=== PATIENT | female | born 1965 | race Caucasian/White ===

== ENCOUNTER 2017-12-14 09:36 | Observation (INO) | payer MEDICAID, MEDICARE ==
[2017-12-14] MEDS ORDERED: NS 0.9% 1000 ML* 1,000 ML IV ONE (09:45)
--- NOTE | 2017-12-14 10:01 | ED ---
Neurological HPI - HPI Summary HPI Summary: Patient is a 52 y/o female who presents to the ED c/o neurological deficits. As per patient, she began having symptoms at 6:00 this morning. She felt very groggy, had trouble focusing, and was off-balance. Patient then went to work, when a co-worker noticed slurred speech at 8:20. She also c/o a headache. She denies any blurred vision or extremity weakness. This is the fifth episode of lethargy and weakness since March 2017. She was evaluated at [facility] and all tests have been negative. She denies any hx of CVA or AFib, but has HTN and HLD. Patient denies any recent surgery or rectal bleeding. She does not take daily ASA. Destinee garcia was called at 9:43. - History of Current Complaint Stated Complaint: HEADACE DIZZY Time Seen by Provider: 12/14/17 09:45 Hx Obtained From: Patient, Family/Oral Surgery Assistant - Co-worker Onset/Duration: Gradual Onset, Started hours ago - 6:00, Still Present Timing: Constant Neurological Deficit Location: Generalized, RLE Headache Location: Diffuse (Right), Diffuse (Left) Character: Motor Weakness, Impaired Speech, Lethargy Aggravating: Nothing Alleviating: Nothing Associated Signs and Symptoms: Positive: Headache, Weakness, Impaired Speech. Negative: Visual Changes, Numbness Similar Episode/Dx as: 5 months ago - Allergy/Home Medications Allergies/Adverse Reactions: Allergies Allergy/AdvReac Type Severity Reaction Status Date / Time bee venom protein (honey bee) Allergy Swelling Verified 12/14/17 10:14 Of Face,Lips,& Throat Home Medications: Home Medications Albuterol HFA INHALER* [Ventolin HFA Inhaler*] 2 puff INH Q4H PRN 12/14/17 [ History Confirmed 12/14/17] Cyanocobalamin TAB* [Vitamin B12 TAB*] 1,000 mcg PO DAILY 12/14/17 [History Confirmed 12/14/17] Cyclobenzaprine TAB* [Flexeril 10 MG TAB*] 10 mg PO TID PRN 12/14/17 [History Confirmed 12/14/17] Docusate CAP* [Colace Cap*] 100 mg PO BID 12/14/17 [History Confirmed 12/14/17] EPINEPHrine [Epipen 2-Stephane] 0.3 mg IM ONCE PRN 12/14/17 [History Confirmed ] Gabapentin CAP(*) [Neurontin 300 CAP(*)] 300 mg PO TID 12/14/17 [History Confirmed 12/14/17] Gabapentin TAB(NF) [Neurontin 600 mg TAB(NF)] 600 mg PO BEDTIME 12/14/17 [ History Confirmed 12/14/17] Ibuprofen TAB* [Motrin TAB* 600 MG] 600 mg PO Q6H PRN 12/14/17 [History Confirmed 12/14/17] Levothyroxine TAB* [Synthroid TAB*] 25 mcg PO QAM 12/14/17 [History Confirmed ] Lisinopril TAB* [Prinivil TAB*] 20 mg PO DAILY 12/14/17 [History Confirmed 12/14] Omeprazole CAP* [Prilosec CAP* 20 MG] 40 mg PO DAILY 12/14/17 [History Confirmed 12/14/17] Potassium Chlor TAB* [Klor Con ER TAB*] 20 meq PO DAILY 12/14/17 [History Confirmed 12/14/17] QUEtiapine TAB* [Seroquel 300 MG TAB*] 300 mg PO BEDTIME 12/14/17 [History Confirmed 12/14/17] Triamterene/HCTZ 37.5-25 MG* [Dyazide CAP*] 1 cap PO DAILY 12/14/17 [History Confirmed 12/14/17] Zolpidem TAB* [Ambien TAB*] 10 mg PO BEDTIME PRN 12/14/17 [History Confirmed ] traZODone TAB* [Desyrel TAB*] 300 mg PO BEDTIME 12/14/17 [History Confirmed ] PMH/Surg Hx/FS Hx/Imm Hx Cardiovascular History: Reports: Hx Hypercholesterolemia, Hx Hypertension Denies: Hx Atrial Fibrillation Respiratory History: Reports: Hx Chronic Obstructive Pulmonary Disease (COPD) GI History: Reports: Hx Gastroesophageal Reflux Disease Neurological History: Reports: Hx Migraine, Other Neuro Impairments/Disorders - Fibromyalgia Denies: Hx CVA Psychiatric History: Reports: Hx Bipolar Disorder - Surgical History Surgery Procedure, Year, and Place: None. - Family History Known Family History: Negative: Blood Disorder - Social History Alcohol Use: Weekly Hx Tobacco Use: Yes Smoking Status (MU): Former Smoker Review of Systems Negative: Blurred Vision Gastrointestinal: Negative - Rectal bleeding Neurological: Other - Lethargy Positive: Headache, Weakness, Slurred Speech All Other Systems Reviewed And Are Negative: Yes Physical Exam - Summary Physical Exam Summary: VITAL SIGNS: Reviewed. GENERAL: Patient is a well-developed and nourished FEMALE who is lying comfortable in the stretcher. Patient is not in any acute respiratory distress. HEAD AND FACE: No signs of trauma. No ecchymosis, hematomas or skull depressions. No sinus tenderness. EYES: PERRLA, EOMI x 2, No injected conjunctiva, no nystagmus. EARS: Hearing grossly intact. Ear canals and tympanic membranes are within normal limits. MOUTH: Oropharynx within normal limits. NECK: Supple, trachea is midline, no adenopathy, no JVD, no carotid bruit, no c- spine tenderness, neck with full ROM. CHEST: Symmetric, no tenderness at palpation LUNGS: Clear to auscultation bilaterally. No wheezing or crackles. CVS: Regular rate and rhythm, S1 and S2 present, no murmurs or gallops appreciated. ABDOMEN: Soft, non-tender. No signs of distention. No rebound no guarding, and no masses palpated. Bowel sounds are normal. EXTREMITIES: FROM in all major joints, no edema, no cyanosis or clubbing. NEURO: Alert and oriented x 3. Slurred speech and RLE weakness. SKIN: Dry and warm GCS: 15 Triage Information Reviewed: Yes Vital Signs Reviewed: Yes Diagnostics - Laboratory Result Diagrams: 12/15/17 05:13 12/15/17 05:13 Lab Statement: Any lab studies that have been ordered have been reviewed, and results considered in the medical decision making process. - Radiology CXR Xray Interpretation: No Acute Changes - NO ACTIVE CARDIOPULMONARY DISEASE. ED physician reviewed radiology report. Radiology Interpretation Completed By: Radiologist - CT Brain CT CT Interpretation: No Acute Changes - NO EVIDENCE FOR GROSS ACUTE INFARCT, MASS EFFECT OR HEMORRHAGE. ED physician reviewed radiology report. CT Interpretation Completed By: Radiologist Chest CT CT Interpretation: Positive (See Comments) - 1. NONDISPLACED FRACTURE OF THE LEFT LATERAL FIFTH RIB. 2. HEPATIC STEATOSIS. ED physician reviewed radiology report. CT Interpretation Completed By: Radiologist Head CTA CT Interpretation: No Acute Changes - Normal variation without pathologic finding of the central intracranial arterial vasculature. ED physician reviewed radiology report. CT Interpretation Completed By: Radiologist - EKG 9:56 Cardiac Rate: NL - 76 bpm EKG Rhythm: Sinus Rhythm EKG Interpretation: No ST elevation NIH Scale - NIH Scale Level of Consciousness: Alert/Keenly Responsive Ask Patient the Month and His/Her Age: Both Correct Ask Pt to Open/Close Eyes and Polymer Engineer/Release Non-Paretic Hand: Both Correctly Best Gaze (Only Horizontal Eye Movement): Normal Visual Field Testing: No Visual Loss Facial Paresis-Pt to Smile & Close Eyes or Grimace Symmetry: Normal/Symmetrical Motor Function - Right Arm: No Drift-Holds 10 Seconds Motor Function - Left Arm: No Drift-Holds 10 Seconds Motor Function - Right Leg: Drifts LT 10 seconds Motor Function - Left Leg: No Drift-Holds 10 Seconds Limb Ataxia-Must be out of Proportion to Weakness Present: Absent Sensory (Use Pinprick to Test Arms/Legs/Trunk/Face): Normal Best Language (Describe Picture, Name Items): No Aphasia Dysarthria (Read Several Words): Slurs Some Words Extinction and Inattention: No Abnormality Total Score: 2 Course/Dx - Course Assessment/Plan: Patient is a 52 y/o female who presents to the ED c/o neurological deficits. As per patient, she began having symptoms at 6:00 this morning. She felt very groggy, had trouble focusing, and was off-balance. Patient then went to work, when a co-worker noticed slurred speech at 8:20. She also c/o a headache. She denies any blurred vision or extremity weakness. This is the fifth episode of lethargy and weakness since March 2017. She was evaluated at [facility] and all tests have been negative. She denies any hx of CVA or AFib, but has HTN and HLD. Patient denies any recent surgery or rectal bleeding. She does not take daily ASA. Destinee garcia was called at 9:43. Blood tests without any significant abnormality except for lactic acid of 2.1 and glucose of 145. Urinalysis is negative for UTI. Head CT is negative for an acute interconnected pathology. Dr. Le recommends no TPA. He reports that the patient woke up with the symptoms. CTA impression: Normal variation without pathologic findings of the central intracranial arterial vasculature. Dr. Le recommends the patient to be admitted to the hospital services. I discussed the case with Dr. Garcia from the hospital services and he accepted the patient for admission. At this point the patient is hemodynamically stable alert oriented 3. - Differential Dx Differential Diagnoses Neuro: Positive: Cerebrovascular Accident, Transient Ischemic Attack, Vasovagal Reaction - Diagnoses Provider Diagnoses: CVA (cerebral vascular accident) During the Visit The Following Alert/Code Occurred: Code Garcia - Called at 9:43 - Physician Notifications Discussed Care Of Patient With: Will Le Time Discussed With Above Provider: 09:50 Instructed by Provider To: Other - Dr. Le will come see the patient in the ED. At 10:[address] Chanel who said the brain CT was negative. At 10:01 Dr. Le came to the ED, and said the patient is not a candidate for tpa. This is the patient's fifth episode of lethargy/weakenss since Mar 2017. There are no localized signs, and he recommends admission for further testing. At 12: 13 Dr. Garcia accepts patient for admission. - Critical Care Time Critical Care Time: 75-104 min Discharge - Sign-Out/Discharge Documenting (check all that apply): Patient Departure - Admit - Discharge Plan Condition: Stable Disposition: ADMITTED TO [facility] - Billing Disposition and Condition Condition: STABLE Disposition: Admitted to [facility] - Attestation Statements Document Initiated by Scribe: Yes Documenting Scribe: Mell Hollingsworth Provider For Whom Reie is Documenting (Include Credential): Ethan Corona MD Scribe Attestation: Mell Fernandez, scribed for Ethan Corona MD on 12/15/17 at 0740. Scribe Documentation Reviewed: Yes Provider Attestation: The documentation as recorded by the Mell altamirano accurately reflects the service I personally performed and the decisions made by me, Ethan Corona MD
--- NOTE | 2017-12-14 10:04 | RAD ---
INDICATION: Neurologic changes, code santana. COMPARISON: There are no relevant prior studies available for comparison. TECHNIQUE: Contiguous axial sections of the brain were obtained from the skull base to the vertex without contrast. FINDINGS: The ventricles, cisterns and sulci are within normal limits. No significant focal abnormality or mass effect is seen. There is no evidence for hemorrhage. No significant focal osseous abnormality is seen. The visualized portion of the paranasal sinuses and mastoid air cells appear clear. The results of this exam were called to the referring clinician at 0959 hours IMPRESSION: NO EVIDENCE FOR GROSS ACUTE INFARCT, MASS EFFECT OR HEMORRHAGE.
--- NOTE | 2017-12-14 10:10 | RAD ---
Indication: Neurologic changes, coronal santana. Single frontal view of the chest performed at 1001 hours was reviewed. No prior study is available. No mediastinal shift is noted. Heart is of normal size and configuration. Lung garcia appear clear. IMPRESSION: NO ACTIVE CARDIOPULMONARY DISEASE IS NOTED.
[2017-12-14 10:31] LABS: ABS Basophils 0 10^3/ul (0-0.2); ABS Eosinophils 0.1 10^3/ul (0-0.6); ABS Lymphocytes 1.3 10^3/ul (1.0-4.8); ABS Monocytes 0.3 10^3/ul (0-0.8); ABS Neutrophils 4.9 10^3/ul (1.5-7.7); ABS Nucleated RBC 0 10^3/ul; Eosinophil % 1.1 % (0-6); Hematocrit 38 % (35-47); Hemoglobin 13.2 g/dl (12.0-16.0); Lymphocyte % 19.5 % (25-47); Mean Corpuscular HGB Conc 34 g/dl (31-36); Mean Corpuscular Hemoglobin 34 pg (27-31); Mean Corpuscular Volume 99 fL (80-97); Mean Platelet Volume 8.7 um3 (7.4-10.4); Nucleated Red Blood Cells % 0.1; Platelet Count 217 10^3/ul (150-450); Red Blood Count 3.88 10^6/ul (4.00-5.40); Red Cell Distribution Width 13 % (10.5-15); White Blood Count 6.6 10^3/ul (3.5-10.8)
[2017-12-14 10:47] LABS: INR 0.89 (0.77-1.02)
[2017-12-14 10:53] LABS: EGFR Non-African American 64.6 (>60)
[2017-12-14] MEDS ORDERED: Iohexol 350* (CONTRAST) 500 ML MDV IV ONE (11:10)
[2017-12-14 11:29] LABS: Urine Appearance Clear; Urine Blood Negative (Negative); Urine Color Yellow; Urine Ketones Negative (Negative); Urine Protein Negative (Negative); Urine Specific Gravity 1.019 (1.010-1.030); Urine Urobilinogen Negative (Negative)
--- NOTE | 2017-12-14 12:06 | RAD ---
INDICATION: Woke up today with slurred speech. Stroke. COMPARISON: December 14, 2017 CT. TECHNIQUE: Multidetector CT images were obtained from the aortic arch to the vertex of the head with 80 mL Omnipaque 350 IV contrast. Arterial phase of enhancement. Multiplanar reformation including maximum intensity projection. 3-D arterial volume rendering. Stenosis estimations based on denominator of distal arterial diameter. NECK ANGIOGRAM REPORT: Normal configuration of the branch vessels at the aortic arch. While motion artifact limits assessment there is no suggestion of ostial stenosis. Minimal atherosclerotic plaque at the proximal bilateral internal carotid artery without resulting stenosis based on NASCET criteria. Tortuous LEFT common and internal carotid arteries. Patent bilateral vertebral arteries with both contributing to the basilar artery. Conspicuity of the proximal to mid LEFT vertebral artery is suboptimal due to beam hardening artifact from contrast in the LEFT vertebral vein. NECK ANGIOGRAM IMPRESSION: Negative for carotid occlusion, stenosis, or dissection. Patent vertebral arteries. HEAD ANGIOGRAM REPORT: Unremarkable intracranial internal carotid arteries as well as the M1 and M2 segments of the middle cerebral arteries and A1 and A2 segments of the anterior cerebral arteries. Small patent anterior communicating artery visualized. Unremarkable cerebellar artery origins and basilar artery. Patent posterior cerebral arteries. The RIGHT posterior cerebral artery is supplied by both the anterior and posterior circulation. The LEFT posterior cerebral artery appears primarily supplied by the LEFT posterior communicating artery with hypoplastic P1 segment, a normal variant. No intracranial aneurysm or vascular malformation evident. Normal opacification of the dural venous sinuses without suggestion of thrombosis. HEAD ANGIOGRAM IMPRESSION: Normal variation without pathologic finding of the central intracranial arterial vasculature. CPT II: CPT II Codes: 3100F
[2017-12-14] MEDS ORDERED: Ketorolac INJ* 30 MG/ML 1 ML VIAL IV PUSH ONE (12:33)
[2017-12-14] MEDS ORDERED: Albuterol 2.5 MG/3 ML NEB.SOL* (0.083%) INH PRN (12:38)
[2017-12-14] MEDS ORDERED: Ondansetron INJ* 2 MG/ML VIAL IV PRN (12:38)
[2017-12-14] MEDS ORDERED: Cyclobenzaprine TAB* 10 MG PO PRN (12:42)
[2017-12-14] MEDS ORDERED: Zolpidem TAB* 5 MG PO PRN (12:42)
[2017-12-14] MEDS ORDERED: Albuterol HFA INHALER* 8 gm MDI INH PRN (12:42)
[2017-12-14] MEDS ORDERED: traMADol TAB* 50 MG PO ONE (12:46)
[2017-12-14] MEDS ORDERED: Zolpidem TAB* 10 MG PO PRN (12:47)
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
[2017-12-14] MEDS: Gabapentin CAP(*) 300 MG PO SCH ×2 (15:10→19:58)
[2017-12-14] MEDS: Heparin VIAL(*) 5000 UNITS/ML VIAL (FIVE THOUSAND) SUBCUT SCH ×2 (15:10→23:28)
--- NOTE | 2017-12-14 16:11 | HP ---
CC: Dr. Alvarez from [facility]; Dr. Le * HISTORY AND PHYSICAL: DATE OF ADMISSION: 12/14/17 PRIMARY CARE PROVIDER: Dr. Alvarez from [facility]. ATTENDING PHYSICIAN WHILE IN THE HOSPITAL: Raul Garcia MD * (report dictated by Avtar Ho NP). CONSULTING NEUROLOGIST: Dr. Le. CHIEF COMPLAINT: 1. Slurred speech. 2. Altered mental status. HISTORY OF PRESENT ILLNESS: Mrs. Villafana is a 52-year-old female patient who carries a history of COPD, emphysema, RILEY, fibromyalgia, chronic back pain, bipolar disorder, and a history of hypertension. She presents to our ER today. She has been having several episodes, in one which she was admitted for in [facility] [place]; having episodes where she is waking up in the morning feeling unsteady, feeling groggy, feeling having a headache, just feeling very tired, feeling out of source in her words, but today's episode was so different in the sense that when she got to her new job that she started 2 weeks ago here in [place], it was noted by the staff where she is working, that she was having slurred speech. They were immediately concerned that there may be something more serious going on such as a stroke and they called 911 and brought the patient into the hospital. There was no reports of visual changes. There was no reports of facial drooping. No reports of abdominal pain or any nausea or vomiting, and she denied having any recent fevers, chills, or abdominal pain. She says that she has not had any weakness to one side. She denied any blurry vision or double vision. She does state the last 2 weeks, she has been waking up in the morning with a headache. She just has not been getting good sleep and she does state that she has, again, recently started a new job here in [place] and she is staying with a friend and commuting back to [place] on the weekends. There has been no reports of change in her medications recently. She also says that she has not had her CPAP adjusted in some time. She came into the ED today. She was evaluated. The code esther was called due to the fact that she was having slurred speech. Her slurred speech did resolve and we were asked to evaluate for admission. PAST MEDICAL HISTORY: Significant for: 1. COPD. 2. Hyperlipidemia. 3. RILEY. 4. Fibromyalgia. 5. Chronic back pain. 6. Bipolar disorder. 7. Hypertension. PAST SURGICAL HISTORY: 1. The patient has had a hysterectomy. 2. Knee arthroscopy. MEDICATIONS: Home meds according to list obtained include: 1. Seroquel 300 mg p.o. at bedtime. 2. Ambien, she is actually taking 10 mg p.o. at bedtime as needed. 3. Dyazide 1 capsule p.o. daily. 4. Neurontin 600 mg at bedtime. 5. Neurontin 300 mg p.o. t.i.d. 6. EpiPen 0.3 mg IM once as needed. 7. Colace 100 mg p.o. b.i.d. 8. Flexeril 10 mg p.o. t.i.d. as needed. 9. B12 1000 mcg p.o. daily. 10. Ventolin 2 puffs inhaled every 4 hours as needed. 11. Lisinopril 20 mg daily. 12. Synthroid 25 mcg p.o. in the morning. 13. Trazodone 300 mg at bedtime. 14. Potassium 20 mEq p.o. daily. 15. Ibuprofen 600 mg every 6 hours as needed. 16. Prilosec 40 mg daily. ALLERGIES: Her allergies to medications include none, but she is allergic to BEE VENOM. FAMILY HISTORY: Mother has a history of diabetes and diverticulitis. Father has a history of heart disease, COPD, lupus, and esophageal cancer. SOCIAL HISTORY: She is a former smoker; she quit over 12 years ago. She does not drink alcohol. Surrogate decision maker is her mother. REVIEW OF SYSTEMS: There is no documented fevers. She is denying having any significant weight change. There is no double vision. She denies having any ear discharge. There is no rhinorrhea. She denied having any sore throat. No thyroid enlargement. Denies having any chest pain. There is no orthopnea. There is no nocturnal dyspnea. There was no abdominal pain. No nausea, no vomiting. No dysuria, no frequency. No seizure. There was no loss of consciousness reported. Review of 14 systems was completed, all others negative. PHYSICAL EXAMINATION GENERAL: At this time, Mrs. Villafana is a 52-year-old female patient. She is sitting in the ED stretcher. She does not appear to be in any acute distress. VITAL SIGNS: Blood pressure 150/90 with a pulse of 78, respirations 15, O2 sat 96%, temperature 98.2. HEENT: Head: Atraumatic and normocephalic. Eyes: EOMs are intact. Sclerae anicteric, not pale. Throat: Oral mucosa appears to be moist. No oropharyngeal erythema. NECK: Supple. LUNGS: Clear to auscultation bilaterally. There are no wheezes, rales, or rhonchi. HEART: Sounds S1, S2. She had no murmurs, rubs, or gallops. ABDOMEN: Soft. It was flat. It was nontender. Bowel sounds were present. EXTREMITIES: Pulses were 2+ throughout. She had no peripheral edema. She is moving all 4 extremities with 5/5 strength. NEUROLOGIC: The patient is awake. She is alert. Cranial nerves II through XII are intact. Her uchyka-vr-nooy and aowq-xf-qcic was intact bilaterally. She had 5/5 strength in all 4 extremities. Speech was clear. Tongue was midline. There was no facial drooping. She had no gross focal deficits. SKIN: Intact. DIAGNOSTIC STUDIES/LAB DATA: The labs today are revealing WBC of 6.6, RBC of 3.88, hemoglobin of 13.2, hematocrit of 38, platelet count of 217. The INR was 0.89, PTT of 28.0. Sodium was 138, potassium was 3.9, chloride of 103, bicarb 26, BUN 18, creatinine of 0.92, glucose of 145, lactic of 2.1, calcium 9.1. Total bili 0.3, AST 14, ALT 12, alk phos 74. CK pending. Troponin 0.00. Albumin 4.2. Her LDL was 154. Urine obtained, it was negative. She had multiple imagings in the ED. Chest x-ray showed no active cardiopulmonary disease. Brain CT obtained today showed no evidence for gross acute infarct, mass effect, or hemorrhage. She had a head CTA obtained today, showed normal variation without pathological finding of a central intracranial arterial vasculature. Negative for carotid occlusion, stenosis, or dissection pain in vertebral arteries. She had an EKG obtained today, I do not have previous for comparison, showed a normal sinus rhythm at a rate of 76. She had no ST elevations or T-wave inversions. Old medical records were reviewed. ASSESSMENT AND PLAN: Mrs. Villafana is a 52-year-old female patient coming into our emergency room today with complaints of having a headache this morning, not feeling well, feeling dizzy, having unsteady gait, feeling very tired. In addition to this, was found to have a slurred speech. We were asked to evaluate for admission as there was concern for possible stroke versus transient ischemic attack. She will be admitted under observatory status for: 1. Altered mental status, neurological deficit, question of transient ischemic attack verus seizure. The plan at this point as her symptoms have resolved, we did touch base with Dr. Le who has evaluated the patient. Lactic is mildly elevated. There is concern that she may have had a seizure, so we are going to get an EEG. She was admitted for this down at [place]. We are going to get those records to see what workups have been done. We are going to check an MRI as well. I question her and she does state that she has been pretty tired in the morning and she said she is in for pressure for her CPAP, so I am going to see if we can get her machine here to evaluate this and do an overnight pulse oximetry as certainly untreated sleep apnea could cause similar symptoms. We will get lipid panel, A1c. I have started her on aspirin. We will place her on telemetry. We will get neuro checks and we will continue to follow. 2. Chronic obstructive pulmonary disease. Continue meds as prescribed. 3. Obstructive sleep apnea. Again, we are going to reevaluate her CPAP if she is able to bring it in. We will do a overnight pulse oximetry. 4. Fibromyalgia and chronic back pain. Continue meds as prescribed. 5. Bipolar. Continue meds as prescribed. 6. Hypertension. Continue meds as prescribed. 7. DVT prophylaxis: She will be placed on heparin subcu. 8. Code status: Full code. 9. Fluids, electrolytes, and nutrition: She can have a heart-healthy diet. TIME SPENT: Time spent on admission was 60 minutes, greater than half of the time spent [id number] with the patient obtaining my history and physical, other half of the time spent going over the plan of care with the patient and implementing the plan of care. I did discuss the plan of care with my attending, Dr. Garcia; he is in agreement. AVTAR HO NP [id number]/[facility] #: [id number] TELLY
--- NOTE | 2017-12-14 17:28 | RAD ---
Indication: Woke up with slurred speech. Weakness, fatigue. Seizure. Comparison: Noncontrast CT head and CT angiogram of the same date. Technique: [employer] [place] 1.5 Nichole [id number] with GEM suite. MRI brain without contrast. Seizure protocol. Report: Diffusion series is negative for acute or subacute ischemia. Susceptibility series is negative for stigmata of hemosiderin deposition to indicate previous hemorrhage. Normal cerebral sulci, ventricles, and basal cisterns. Normal patterns of signal intensity throughout the cerebrum and posterior fossa. No intra or extra-axial lesions or fluid collections evident. Symmetric appearance of the mesial temporal regions. Symmetric appearance of the membranous labyrinths and internal auditory canals. Preserved major intracranial flow-voids. Unremarkable orbital contents. Unremarkable calvarium and skull base. Clear paranasal sinuses and mastoid air spaces. Unremarkable scalp. IMPRESSION: #. Negative unenhanced MRI of the brain.
[2017-12-14] MEDS: Docusate CAP* 100 MG PO SCH (19:58)
[2017-12-14] MEDS: Acetaminophen TAB* 325 MG PO PRN (19:59)
[2017-12-14] MEDS ORDERED: traZODone TAB* 100 MG PO SCH (21:00)
[2017-12-14] MEDS ORDERED: Gabapentin CAP(*) 300 MG PO SCH (21:00)
[2017-12-14] MEDS ORDERED: QUEtiapine TAB* 300 MG PO SCH (21:00)
--- NOTE | 2017-12-15 02:57 | EEG ---
ELECTROENCEPHALOGRAM REPORT: DATE OF STUDY: 12/14/17 - ROOM #[id number] LOCATION: She is an inpatient. REFERRING PHYSICIAN: Dr. Le. CLINICAL PROBLEM: The patient awoke on the day of this recording with slurred speech, extreme fatigue, and difficulty concentrating. This was the 5th episode such episode in the last 10 months, rule out seizure disorder. MEDICATIONS: At home consist of: 1. Ambien. 2. Zofran. 3. Flexeril. 4. Trazodone. 5. Synthroid. 6. Prilosec. 7. Aspirin. 8. Desyrel. 9. Seroquel. 10. Gabapentin. 11. Tramadol. REPORT: This 16-channel EEG is remarkable for background rhythms at the onset of the tracing consisting of a posterior alpha rhythm at about 9 cycles per second, which is symmetric and suppressed by eye opening. Low voltage bifrontal beta rhythms are seen and are symmetric. An occasional wicket rhythm is seen in the left central temporal region. The patient drowses frequently during the tracing and falls asleep with vertex sharp waves and sleep spindles seen symmetrically. At times, there were some higher voltage phase-reversing spikes in the right central parietal area. This only occurred during sleep. There were no clinical events. Activation procedures are not attempted. CLINICAL IMPRESSION: Borderline abnormal EEG due to some phase-reversing spikes in the right central parietal region during stage II sleep. These are not clearly epileptiform in morphology. Clinical correlation is required. [id number]/[facility] #: [id number] [facility]
[2017-12-15] MEDS: Heparin VIAL(*) 5000 UNITS/ML VIAL (FIVE THOUSAND) SUBCUT SCH (05:20)
[2017-12-15 05:30] LABS: ABS Basophils 0 10^3/ul (0-0.2); ABS Eosinophils 0.2 10^3/ul (0-0.6); ABS Lymphocytes 2.4 10^3/ul (1.0-4.8); ABS Monocytes 0.5 10^3/ul (0-0.8); ABS Neutrophils 2.6 10^3/ul (1.5-7.7); ABS Nucleated RBC 0 10^3/ul; Eosinophil % 2.9 % (0-6); Hematocrit 34 % (35-47); Hemoglobin 11.7 g/dl (12.0-16.0); Lymphocyte % 42.1 % (25-47); Mean Corpuscular HGB Conc 35 g/dl (31-36); Mean Corpuscular Hemoglobin 34 pg (27-31); Mean Corpuscular Volume 98 fL (80-97); Mean Platelet Volume 8.8 um3 (7.4-10.4); Nucleated Red Blood Cells % 0.2; Platelet Count 203 10^3/ul (150-450); Red Blood Count 3.42 10^6/ul (4.00-5.40); Red Cell Distribution Width 13 % (10.5-15); White Blood Count 5.7 10^3/ul (3.5-10.8)
[2017-12-15 05:32] LABS: INR 0.83 (0.77-1.02)
[2017-12-15 05:49] LABS: EGFR Non-African American 71.8 (>60)
[2017-12-15] MEDS: Acetaminophen TAB* 325 MG PO PRN (08:01)
[2017-12-15] MEDS: Gabapentin CAP(*) 300 MG PO SCH (08:02)
[2017-12-15] MEDS: Docusate CAP* 100 MG PO SCH (08:02)
[2017-12-15] MEDS ORDERED: Omeprazole CAP* 20 MG PO SCH (09:00)
[2017-12-15] MEDS ORDERED: Levothyroxine TAB* 25 MCG TAB PO SCH (09:00)
[2017-12-15] MEDS ORDERED: Triamterene/HCTZ 37.5-25 MG* CAP PO SCH (09:00)
[2017-12-15] MEDS ORDERED: Potassium Chlor TAB* 20 MEQ TAB.ER PO SCH (09:00)
[2017-12-15] MEDS ORDERED: Lisinopril TAB* 10 MG PO SCH (09:00)
[2017-12-15] MEDS ORDERED: Cyanocobalamin TAB* 500 MCG PO SCH (09:00)
[2017-12-15] MEDS ORDERED: Aspirin 81 mg CHEW TAB* 81 MG TAB.CHEW PO SCH (09:00)
[2017-12-15 09:30] VITALS: BP 138/63
--- NOTE | 2017-12-15 13:17 | DS ---
DISCHARGE SUMMARY: DATE OF ADMISSION: 12/14/17 DATE OF DISCHARGE: 12/15/17 PRIMARY CARE PROVIDER: Dr. Alvarez from [place]. PRIMARY DIAGNOSIS: Concern for seizure versus complex migraine versus conversion disorder. SECONDARY DIAGNOSES: Include: 1. Chronic obstructive pulmonary disease. 2. Hyperlipidemia. 3. Obstructive sleep apnea. 4. Hypertension. 5. Bipolar disorder. 6. Fibromyalgia and chronic pain. 7. Insomnia. MEDICATIONS AT DISCHARGE: Unchanged from admission include: 1. Ambien 10 mg at bedtime as needed. 2. Seroquel 300 mg at bedtime. 3. Dyazide 1 cap daily. 4. Gabapentin 600 mg daily and 300 mg 3 times daily. 5. Epinephrine as needed. 6. Docusate 100 mg twice daily. 7. Flexeril 10 mg 3 times a day as needed. 8. Vitamin B12 1000 mcg daily. 9. Albuterol as needed. 10. Lisinopril 20 mg daily. 11. Levothyroxine 25 mcg daily. 12. Trazodone 300 mg at bedtime. 13. Potassium chloride 20 mEq daily. 14. Ibuprofen 600 mg every 6 hours as needed. 15. Omeprazole 40 mg daily. 16. Aspirin 81 mg daily. PERTINENT IMAGING STUDIES: 1. Brain MRI, impression is normal exam. 2. Head CTA, impression: Normal variation without pathological findings. 3. EEG: Borderline abnormal EEG due to some phase-reversing spikes in the right central parietal region during stage II sleep. These are not clearly epileptiform in morphology. Medical correlation is recommended. PERTINENT LABORATORY DATA: Lactic acid on presentation was 2.1. Triglycerides 422, cholesterol 246, LDL 154, HDL 42. TSH is 4.2. HISTORY OF PRESENT ILLNESS AND HOSPITAL COURSE: A 52-year-old female with past medical history as outlined in history of present illness, on the day of admission woke up in the morning, much more fatigued, once at work was noted to be slurring her speech, was directed to the emergency room. Of note, she has had 5 episodes similar to this since March without etiology identified. In the past, she says there was some concern that she mixed up evening medications and took them in the a.m. resulting in the ingestion of Ambien and some lethargy and fatigue. She connected from that this happened this time. In fact , keon at the bedside says she was very difficult to wake from sleep before she woke and took any of her medications. The patient is quite dismissive that there could be any other problem and she notes that she knows what the problem, "I know what the problem is, I have been very stressful." I did attempt to associate counsel the patient at length about the differential that we are considering and the necessary followup that would entail. Again, she is very dismissive. Additionally, I have recommended that she sign out medical information release, so that she could expedite the transfer of her records from this hospital site to her neurologist, which she again declined to do. Of note, the patient notes she had headache over the last 2 weeks, which she has been taking ibuprofen 600 mg every 6 hours for. I counseled her to discontinue this practice for her GI safety as well as to avoid rebound headaches. This is another reason I encouraged her to follow up with her neurologist. She does note she has no headache at this time. She is seen in conjunction with Neurology as concern for nocturnal seizures versus in this author's opinion, complex migraines versus conversion disorder. The patient notes she has a new job over the last 2 weeks, which is very stressful. Additionally, she has her father sick at [facility]. She had an overnight pulse oximetry, which did not indicate any excessive desaturation, less than 88% although. She would likely benefit from further titration of her CPAP, which I suggested close interval followup with Pulmonology, which she agreed to. She declines any followup appointments made by this author. There are no complications during the hospital stay. The patient was back to her baseline according to herself as well as her on the day of discharge without any neurological findings. Reasons to return to the hospital include, but are not limited to, recurrent or worsening symptoms, chest pain, shortness of breath, nausea, vomiting, lightheadedness, loss of consciousness, near loss of consciousness, increased fatigue, asymmetric weakness, any paresthesias, slurred speech discussed with the patient and her fiance; they acknowledged understanding. TIME SPENT: Greater than 60 minutes was spent on the discharge of this patient , greater than half was spent [id number] with the patient. [id number]/[facility] #: [id number] TELLY
== END 2017-12-15 11:45 | disposition home or self-care (01) ==
LOC: ED 09:36 → MEDTELE 13:00
PROVIDERS: ADMIT Internal Medicine; ATTEND Internal Medicine
DX: R47.81 Slurred speech (principal); J44.9 Chronic obstructive pulmonary disease, unspecified; E78.5 Hyperlipidemia, unspecified; G47.33 Obstructive sleep apnea (adult) (pediatric); M54.9 Dorsalgia, unspecified; F31.9 Bipolar disorder, unspecified; I10 Essential (primary) hypertension; M79.7 Fibromyalgia; G47.00 Insomnia, unspecified; Z79.899 Other long term (current) drug therapy; Z87.891 Personal history of nicotine dependence; Z79.82 Long term (current) use of aspirin; R53.83 Other fatigue
CPT/HCPCS: 36415; 70450; 70496; 70498; 70551; 71045; 80048; 80053; 80061; 81003; 82550; 83036; 83605; 83721; 84443; 84484; 85025; 85610; 85730; 86850; 86900; 86901; 93005; 94660; 95819; 96361; 96372; 96374; 99285; A9270-GY; G0378; J1644; J1885; Q9967

== ENCOUNTER 2018-01-18 10:13 | Emergency (ER) | payer MEDICARE ==
[2018-01-18 10:32] VITALS: BP 137/82
--- NOTE | 2018-01-18 10:58 | UC ---
Respiratory Complaint HPI - HPI Summary HPI Summary: 52 yo F, hx of COPD/emphysema, p/w L facial sinus pressure for 1 week that has been worsening despite ibuprofen. associated w L ear pain. Unsure of fever. No N /V. no drainage. No cough but feels like a COPD exacerbation is impending - History of Current Complaint Chief Complaint: UCEar Stated Complaint: RESP ISSUE EAR PAIN COPD Time Seen by Provider: 01/18/18 10:48 Hx Obtained From: Patient Pain Intensity: 8 - Allergies/Home Medications Allergies/Adverse Reactions: Allergies Allergy/AdvReac Type Severity Reaction Status Date / Time bee venom protein (honey bee) Allergy Swelling Verified 01/18/18 10:36 Of Face,Lips,& Throat Home Medications: Home Medications Cholecalciferol (Vitamin D3) [Vitamin D3] 1,000 unit PO DAILY 01/18/18 [History Confirmed 01/18/18] PMH/Surg Hx/FS Hx/Imm Hx Respiratory History: COPD - Surgical History Surgical History: Yes Surgery Procedure, Year, and Place: multiple surgeries at [place]: Knee,cx,tubal, hyster,gall bladder - Family History Known Family History: Negative: Blood Disorder - Social History Alcohol Use: Weekly Substance Use Type: None Smoking Status (MU): Former Smoker Review of Systems Constitutional: Other - unsure of fever ENT: Sinus Congestion, Sinus Pain/Tenderness Respiratory: Negative All Other Systems Reviewed And Are Negative: Yes Physical Exam Triage Information Reviewed: Yes Appearance: Other: - appears uncomfortable Vital Signs: Initial Vital Signs Temp 98 F 01/18/18 10:28 Pulse 71 01/18/18 10:28 Resp 16 01/18/18 10:28 BP 137/82 01/18/18 10:28 Pulse Ox 99 01/18/18 10:28 Vital Signs Reviewed: Yes Eyes: Positive: Conjunctiva Clear ENT: Positive: Sinus tenderness, Other - L maxillary sinus TTP. Negative: Nasal congestion, Nasal drainage, TM bulging, TM dull, TM red Respiratory: Positive: No respiratory distress, No accessory muscle use Abdomen Description: Negative: Distended Skin Exam: Normal UC Diagnostic Evaluation - Laboratory O2 Sat by Pulse Oximetry: 99 Respiratory Course/Dx - Differential Dx/Diagnosis Differential Diagnosis/HQI/PQRI: Bronchitis, Sinusitis, Other - AOM Provider Diagnoses: acute sinusitis Discharge - Sign-Out/Discharge Documenting (check all that apply): Patient Departure All imaging exams completed and their final reports reviewed: No Studies - Discharge Plan Condition: Stable Disposition: HOME Prescriptions: Amoxicillin/Clavulanate TAB* [Augmentin TAB 875*] 875 mg PO BID 7 Days #14 tab Patient Education Materials: Sinusitis (ED) Referrals: No Primary Care Phys,NOPCP [Primary Care Provider] - - Billing Disposition and Condition Condition: STABLE Disposition: Home
== END 2018-01-18 11:05 | disposition home or self-care (01) ==
LOC: UCEAST 10:13
DX: J01.90 Acute sinusitis, unspecified (principal); Z91.030 Bee allergy status; Z87.891 Personal history of nicotine dependence
CPT/HCPCS: 99212; G0463